=== PATIENT | female | born 1955 | race Caucasian/White ===

== ENCOUNTER → 2016-12-22 13:51 | Outpatient (CLI) | payer BC | END | disposition home or self-care (01) | LOC: D.MAMMO 11:30 | DX: Z12.31 Encounter for screening mammogram for malignant neoplasm of breast (principal) ==

== ENCOUNTER 2019-05-13 07:00 | Outpatient (CLI) | payer MEDICARE, BC | END 2019-05-13 07:30 | disposition home or self-care (01) | LOC: D.MAMMO 07:00 | PROVIDERS: ATTEND Clinical Nurse Specialist Family Health | DX: Z12.31 Encounter for screening mammogram for malignant neoplasm of breast (principal) ==

== ENCOUNTER → 2019-12-17 11:50 | Outpatient (CLI) | payer MEDICARE, BC | END | disposition home or self-care (01) | LOC: D.MAMMO 11:50 | PROVIDERS: ATTEND Clinical Nurse Specialist Family Health | DX: S20.101A Unspecified superficial injuries of breast, right breast, initial encounter (principal) ==